=== PATIENT | male | born 1965 | race Caucasian/White ===

== ENCOUNTER 2016-11-24 15:25 | Inpatient (IN) | payer OTHER ==
[~2016-11-24] VITALS: Ht 182.9 cm; Wt 88.6 kg
--- NOTE | ~2016-11-24 | CATHLAB ---
[facility] [employer] [place] [address] INVASIVE PROCEDURE REPORT Name: PIERCE RUSSO Room #: 201-P ADM IN M.R.#: [id number] Admission: 11/24/16 Attend Phys: Garrison Cardenas Discharge: Date of : 63 Date of Service: 11/25/16 1116 Report #: [id number] THIS REPORT FOR: //name// CC: Paulino JAMES DATE OF SERVICE: 11/25/2016 TYPE OF REPORT: Cardiac catheterization. INDICATION: Rgb-ZH-tomcqzicv myocardial infarction. DESCRIPTION OF PROCEDURE: Full risks, benefits and alternatives of cardiac catheterization were explained to the patient. All questions were answered. Informed consent was obtained. The right groin area was prepped and draped in a sterile manner. Lidocaine was given subcutaneously. A 4-Ethiopian sheath was inserted into the right femoral artery via modified Seldinger technique. CORONARY ANATOMY: The left main artery is a large caliber vessel, with no flow-limiting lesions. The LAD is a ohqvuzoe-cy-nhjmr size caliber vessel, travelling down the anterior wall and wrapping around the apex. There is a severe, complicated bifurcating stenosis involving the proximal LAD and ostium of the first diagonal artery. The diagonal artery is a moderate-sized caliber vessel, travelling down the anterior lateral wall. This stenosis is approximately 80%-90% involving the proximal LAD and ostium of the first diagonal artery. The left circumflex artery is a ayxmclvw-ic-oeznk size caliber vessel, supplying several obtuse marginal arteries. The first obtuse marginal artery is a moderate-size caliber vessel with a severe stenosis at the ostium, at least 90%. The RCA supplies the PDA. The RCA has a ufqwspmt-nh-wubcis stenosis in the mid segment, 50%-70%. A left ventriculogram was performed revealing moderate LV dysfunction, EF around 35%-40%. There is hypokinesis of the anterior lateral and apical segments. The LVEDP is 20 mmHg. There is no gradient across the outflow tract. IMPRESSION: 1. Severe 3-vessel disease. 2. Moderate segmental left ventricular dysfunction. [facility] [address] [address] INVASIVE PROCEDURE REPORT Name: PIERCE RUSSO Room #: 201-P ADM IN M.R.#: [id number] Admission: 11/24/16 Attend Phys: Garrison Cardenas Discharge: Date of : 63 Date of Service: 11/25/16 1116 Report #: [id number] RECOMMENDATION: Recommend surgical consultation. <ELECTRONICALLY SIGNED> By: Gabe Kim MD 11/26/16 0737 1116 20 Gabe Kim MD /nt
--- NOTE | ~2016-11-24 | EKG ---
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: Cyndy MILLS : 1965 Requested By: Pierce Fong Order Number: [id number] MD: Bharat Arboleda Measurements Intervals [place] Rate: 89 P: 39 VA: 203 QRS: 21 QRSD: 129 T: 24 QT: 390 QTc: 475 Interpretive Statements Sinus rhythm Borderline prolonged VA interval Right bundle branch block Compared to ECG 11/26/2016 21:45:09 Right bundle-branch block now present Electronically Signed On 11-28-2016 9:21:25 CDT by Bharat Arboleda [email or web address] <ELECTRONICALLY SIGNED> By: Bharat Arboleda MD, [facility] 11/28/16920 1555 1555 Bharat Arboleda MD, [facility] /EPI
--- NOTE | ~2016-11-24 | HC ---
[facility] [place] [address] CONSULTATION Name: PIERCE RUSSO Room #: 201-P ADM IN M.R.#: [id number] Admission: 11/24/16 Attend Phys: Paulino Ruiz MD Discharge: Date of : 63 Report #: [id number] THIS REPORT FOR: //name// CC: Paulino GAUTAMDEVENDRA MELCHORY DATE OF SERVICE: 11/24/2016 INDICATION: Chest pain. HISTORY OF PRESENT ILLNESS: This is a 51-year-old gentleman with a past medical history significant for diabetes mellitus, hypertension, presenting with chest pains of 2 days onset. 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 He has some intermittent chest pain yesterday while at work. Today, the pain was more severe, about 5/10 in intensity. He felt some diaphoresis and nausea. The patient presented to the ER for an evaluation. He reports having one episode of vomiting, after taking aspirin. The pain was not alleviated with sitting upright or deep inspiration. PAST MEDICAL HISTORY: Diabetes mellitus, hypertension. ALLERGIES: LISINOPRIL. MEDICATIONS: Losartan 25 mg daily and Janumet 50/500 mg twice a day. SOCIAL HISTORY: Negative for tobacco use. FAMILY HISTORY: Positive for CAD. REVIEW OF SYSTEMS: A full 10-point review of systems performed. Only the pertinent positives and negatives as described in the HPI. PHYSICAL EXAMINATION: VITAL SIGNS: Blood pressure is 110/70, heart rate is 67 beats per minute. GENERAL APPEARANCE: This is a well-developed, well-nourished male in no acute respiratory distress. HEAD AND EYES: Normocephalic. Sclerae are anicteric. ENT: Oral mucosa moist. NECK: Supple. LUNGS: Clear to auscultation. CARDIAC: Regular rate and rhythm, S1, S2 positive. ABDOMEN: Soft. EXTREMITIES: No major joint deformities. No edema. ECG reveals sinus rhythm, diffuse ST elevation in V2 to V5, consistent with early repolarization. [facility] [address] [place] [address] CONSULTATION Name: PIERCE RUSSO Room #: 201-P ADM IN [facility].#: [id number] Admission: 11/24/16 Attend Phys: Paulino Ruiz MD Discharge: Date of : 63 Report #: [id number] LABORATORY VALUES: Sodium is 143, creatinine is 1.0, troponin is 0.99. White count is 13.8, hemoglobin 15.5. ASSESSMENT: 1. Non-ST elevation myocardial infarction. The patient was started on IV heparin, IV nitroglycerin. His symptoms have been relieved. Continue with serial troponin measurements. We discussed the pros and cons of noninvasive stress testing versus cardiac catheterization. 2. Hypertension, continue with losartan. 3. Diabetes mellitus, continue with medications. Check fingersticks. 4. Hypercholesterolemia, will need a lipid panel. Thank you for allowing me to participate in the care of your patient. <ELECTRONICALLY SIGNED> By: Gabe Kim MD 11/25/16 0741 1732 0106 Gabe Kim MD /susannah
--- NOTE | ~2016-11-24 | H ---
[facility] [place] [address] HISTORY AND PHYSICAL Name: PIERCE RUSSO Room #: 201-P ADM IN M.R.#: [id number] Admission: 11/24/16 Attend Phys: Paulino Ruiz MD Discharge: Date of : 63 Report #: [id number] THIS REPORT FOR: //name// CC: Paulino Ruiz MARÍA MELCHORY DATE OF SERVICE: 11/24/2016 This is admission to the hospitalist service. HISTORY OF PRESENT ILLNESS: The patient sees the primary care doctor, Dr. Dunn. He states he was working today and developed some nonradiating mid sternal chest pain. He did have some nausea, episode of vomiting and weakness with this. He had a couple of similar episodes yesterday. 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 He describes it as tightness. He did take aspirin, but vomited after taking it. He does have a family history of coronary artery disease with the dad in his 50s. He is also diabetic and has hypertension. He is not taking a statin. PAST MEDICAL HISTORY: Significant for: 1. Hypertension. 2. Diabetes. MEDICATIONS: Include: 1. Janumet 50/500 one b.i.d. 2. Losartan 25 mg a day. ALLERGIES: LISINOPRIL CAUSING A COUGH. SOCIAL HISTORY: Nonsmoker, drinks alcohol occasionally. No recreational drugs. 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 REVIEW OF SYSTEMS: CONSTITUTIONAL: No fever or chills. HEENT: No headaches or visual changes. CHEST: Positive for chest pains. No significant cough or sputum production. GASTROINTESTINAL: Positive for nausea and vomiting. No black stools or diarrhea. GENITOURINARY: No burning or frequency. EXTREMITIES: No new joint pain. SKIN: No new rashes or wounds. NEUROLOGIC: No new numbness, but positive for generalized weakness. PHYSICAL EXAMINATION: VITAL SIGNS: Blood pressure 110/69, pulse 74, respiratory rate 18, and O2 sat is 98% on 2 liters. [facility] [address] [place] [address] HISTORY AND PHYSICAL Name: PIERCE RUSSO Room #: 201-P [facility] IN M.R.#: [id number] Admission: 11/24/16 Attend Phys: Paulino Ruiz MD Discharge: Date of : 63 Report #: [id number] GENERAL: He is awake, alert and very pleasant male, who is in no acute distress. HEENT: His mucous membranes are moist. NECK: Supple, without adenopathy, thyromegaly or bruits. CHEST: Clear to auscultation, nontender to palpation. CARDIOVASCULAR: Regular rhythm without murmur. ABDOMEN: Soft, no masses. Bowel sounds are active. EXTREMITIES: Show no edema. Pulses are intact. SKIN: Grossly intact. No wounds or rashes. NEUROLOGIC: Alert and oriented x 3. Cranial nerves are grossly intact. Motor and sensory grossly intact. LABORATORY DATA: EKG shows sinus rhythm, rate of 67. There is some ST segment elevation in V2, 3, 4, 5 with early repolarization. No old EKGs to compare. Sodium 143, potassium 3.5, chloride 105, bicarbonate 28, BUN 17, creatinine 1.0, and glucose 147. Troponin 0.99. BNP 852. WBCs 13.8, hemoglobin 15.5, hematocrit 44.7, platelet count 286, 52 segs, and 27 lymphs. Chest x-ray shows no acute process. ASSESSMENT AND PLAN: 1. Non-ST Segment Elevation Myocardial Infarction. The patient has been seen by Cardiology, Dr. Alcantar, get catheterization by tomorrow. They are going to start him on nitroglycerin; however, he had a drop in his blood pressure in the ER. Since he is pain free right now, we will hold off on that. He did get aspirin again. We will admit to CCU tele. 2. Diabetes mellitus. We are going to hold his Janumet, so he can have the heart catheterization. To keep him metformin off. We will do sliding scale of insulin. By: 1837 23 Paul Burnette MD /nt
--- NOTE | ~2016-11-24 | EKG ---
[address] [place] [address] ELECTROCARDIOGRAM REPORT Name: PIERCE RUSSO Room #: 201-P ADM IN M.R.#: [id number] Admission: 11/24/16 Attend Phys: Paulino Ruiz MD Discharge: Date of : 63 Report #: [id number] THIS REPORT FOR: //name// 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
--- NOTE | ~2016-11-24 | EKG ---
[address] [employer] [place] [address] ELECTROCARDIOGRAM REPORT Name: PIERCE RUSSO Room #: 239-P ADM IN M.R.#: [id number] Admission: 11/24/16 Attend Phys: Garrison Cardenas MD Discharge: Date of : 63 Report #: [id number] THIS REPORT FOR: //name// [facility] Test Date: 2016-11-28 Test Time: 06:38:11 Pat Name: PIERCE RUSSO Department: Room: 239 P Gender: M Core Maker: dudley : 1965 Requested By: Pierce Fong Order Number: [id number] MD: Bharat Arboleda Measurements Intervals [place] Rate: 72 P: 6 AK: 227 QRS: -19 QRSD: 127 T: 19 QT: 413 QTc: 453 Interpretive Statements Sinus rhythm Prolonged AK interval Right bundle branch block Possible Anteroseptal infarct, age indeterminate Compared to ECG 11/26/2016 21:45:09 no significant change was found Electronically Signed On 11-28-2016 9:27:30 CDT by Bharat Arboleda [email or web address] <ELECTRONICALLY SIGNED> By: Bharat Arboleda MD, [facility] 11/28/16 0927 0638 0638 Bharat Arboleda MD, [facility] /EPI
--- NOTE | ~2016-11-24 | O ---
[facility] [place] [address] OPERATIVE REPORT Name: PIERCE RUSSO Room #: 205-P [facility] IN M.R.#: [id number] Admission: 11/24/16 Attend Phys: Garrison Cardenas MD Discharge: 12/02/16 Date of : 63 Report #: [id number] THIS REPORT FOR: //name// CC: Garrison GAUTAMDEVENDRA MELCHORY DATE OF SERVICE: 11/27/2016. PREOPERATIVE DIAGNOSIS: Coronary artery disease. POSTOPERATIVE DIAGNOSIS: Coronary artery disease. OPERATION: Coronary artery bypass x 4 including left internal mammary artery to left anterior descending artery, saphenous vein to diagonal and marginal 1 and saphenous vein to posterior descending artery and endoscopic harvest, left greater saphenous vein. SURGEON: Pierce Fong M.D. ANESTHESIA: General. INDICATIONS: The patient is a 51-year-old seen for Dr. Kim. The patient has important 3-vessel coronary artery disease and diabetes mellitus. Left ventricular function is reduced with apical akinesis. FINDINGS AND TECHNIQUE: After general anesthesia was established, saphenous vein was harvested using an endoscopic approach by Mr. Jones and prepared for use as a conduit. Exposure was obtained through median sternotomy. Left internal mammary artery was harvested from chest wall. Pericardial well was made. Cannulation sutures were placed. Heparin was given. Aorta was cannulated. Right atrium was cannulated. Cardioplegia needle was positioned in the aortic root. Retrograde cardioplegic catheter was placed in coronary sinus. Cardiopulmonary bypass was established. The aorta was cross clamped antegrade then retrograde cardioplegia were given. Ice was poured in the pericardial well. The heart was stopped. During electromechanical arrest, the distal anastomoses were performed and end-to-side anastomosis was made between vein and the posterior descending artery. Cold cardioplegia was given. A separate segment of vein was sewn in end-to-side fashion to first marginal artery. Cold cardioplegia was given. Same segment of vein was sewn in uope-fw-cfkt fashion to the diagonal artery. Cold cardioplegia was given. Left internal mammary artery was sewn in end-to-side fashion to left anterior descending artery. Patency of this vessel was checked with the temperature technique. Cold cardioplegia was given. Two proximal anastomoses were performed. When these were complete, warm retrograde cardioplegia was given followed by warm continuous blood to the coronary sinus. [facility] [address] [place] [address] OPERATIVE REPORT Name: PIERCE RUSSO Room #: 205-P [facility] IN M.R.#: [id number] Admission: 11/24/16 Attend Phys: Garrison Cardenas MD Discharge: 12/02/16 Date of : 63 Report #: [id number] When this infusion was complete, the crossclamp was removed, de-airing maneuvers were performed. The anastomoses were inspected and found to be satisfactory. As the patient warmed, nice cardiac activity resumed, chest tubes and pacing wires were placed, a marker was placed around the proximal anastomoses. When the patient was warmed, he was weaned from cardiopulmonary bypass. Venous cannula was removed. Protamine was given, the aortic cannula was removed. Flows were measured in the bypass grafts. Flow in the graft to the right side was 25 mL per minute. Flow in the graft to the left side was 53 mL per minute. A good Doppler signal was audible in the internal mammary artery. Total cross clamp time was 96 minutes, total pump time was 115 minutes. When hemostasis was satisfactory, chest was irrigated with antibiotic solution and closed in the usual fashion. The patient was taken to the Intensive Care Unit in good condition having tolerated the procedure well. All counts reported as correct. <ELECTRONICALLY SIGNED> By: iPerce Fong MD 12/03/16 1413 0828 0908 Pierce Fong MD /nt
--- NOTE | ~2016-11-24 | 2DMMODE ---
[facility] [address] [place] [address] 2 D/M-MODE ECHOCARDIOGRAM Name: PIERCE RUSSO Room #: 201-P ADM IN M.R.#: [id number] Admission: 11/24/16 Attend Phys: Garrison Cardenas Discharge: Date of : 63 Date of Service: 11/26/16 1248 Report #: [id number] THIS REPORT FOR: //name// APPROVED REPORT Study performed: 11/26/2016 11:35:15 EXAM: Comprehensive 2D, Doppler, and color-flow Echocardiogram Patient Location: Bedside Room #: 201 Blood Pressure: 133/64 mmHg HR: 62 bpm Other Information Study Quality: Good Indications Diabetes CAD Chest Pain Hypertension/HDD 2D Dimensions RVDd: 37.09 mm LVEF(%): 49.75 (>50%) IVSd: 11.21 (7-11mm) LVOT Diam: 21.39 (18-24mm) LVDd: 47.38 mm PWd: 9.28 (7-11mm) Ascending Aorta: 30.01 mm LVDs: 35.44 (25-40mm) IVC: 19.00 mm Aortic Root: 32.72 mm Gutiérrez's LVEF: 49.75 % Volumes Left Atrial Volume (Systole) Single Plane 4CH: 55.43 mL Single Plane 2CH: 47.87 mL LA ESV Index: 28.00 mL/m2 Aortic Valve AoV Peak Breezy.: 1.03 m/s AO Peak Gr.: 4.20 mmHg LV Max P.07 mmHg LV Max: 0.88 m/s Mitral Valve E/A Ratio: 1.4 [facility] [address] [place] [place] [address] 2 D/M-MODE ECHOCARDIOGRAM Name: PIERCE RUSSO Room #: 201-P ADM IN M.R.#: [id number] Admission: 11/24/16 Attend Phys: Garrison Cardenas Discharge: Date of : 63 Date of Service: 11/26/16 1248 Report #: [id number] MV Decel. Time: 170.97 ms MV E Max Breezy.: 0.74 m/s MV A Breezy.: 0.54 m/s MV PHT: 49.58 ms Pulmonary Vein P Vein S: 33.7 m/s P Vein D: 28.6 m/s P Vein A Dur.: 26.5 m/s PVa Duration: 111 Tricuspid Valve RAP Estimate: 5.00 mmHg Left Ventricle The left ventricle is normal size. Hypokinesis of the septum, anterior wall and apex. There is normal left ventricular wall thickness. Left ventricular systolic function is moderately decreased. LVEF is 30-35%. Grade II diastolic dysfunction Right Ventricle The right ventricle is normal size. The right ventricular systolic function is normal. Atria The left atrium size is normal. The right atrium size is normal. Aortic Valve The aortic valve is normal in structure. No aortic regurgitation is present. There is no aortic valvular stenosis. Mitral Valve The mitral valve is normal in structure. No mitral regurgitation. No evidence of mitral valve stenosis. Tricuspid Valve The tricuspid valve is normal in structure. There is no tricuspid valve regurgitation noted. Pulmonic Valve The pulmonary valve is normal in structure. There is no pulmonic valvular regurgitation. Great Vessels The aortic root is normal in size. IVC is normal in size and collapses >50% with inspiration. [facility] [place] [address] 2 D/M-MODE ECHOCARDIOGRAM Name: PIERCE RUSSO Room #: 201-P ADM IN M.R.#: [id number] Admission: 11/24/16 Attend Phys: Garrison Cardenas Discharge: Date of : 63 Date of Service: 11/26/16 1248 Report #: [id number] Pericardium There is no pericardial effusion. <Conclusion> Left ventricular systolic function is moderately decreased. Hypokinesis of the septum, anterior wall and apex. LVEF 30-35%. The aortic valve is normal in structure. No aortic regurgitation or stenosis. The mitral valve is normal in structure. No mitral regurgitation. Pulmonary artery pressure could not be reliably ascertaiened. There is no pericardial effusion. <ELECTRONICALLY SIGNED> By: Bharat Arboleda MD, [facility] 11/26/16 1248 1248 1248 Bharat Arboleda MD, [facility] /INF
--- NOTE | ~2016-11-24 | EKG ---
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 : 1965 Requested By: Gabe Kim Order Number: [id number] MD: Bharat Arboleda Measurements Intervals [place] Rate: 71 P: 16 [place]: 194 QRS: 20 QRSD: 99 T: 108 QT: 408 QTc: 444 Interpretive Statements Sinus rhythm Anterior infarct, age indeterminate Lateral leads are also involved Baseline wander in lead(s) V4 Compared to ECG 11/25/2016 09:01:24 Anterior T wave abnormality is now present Electronically Signed On 11-27-2016 8:43:45 CDT by Bharat Arboleda [email or web address] <ELECTRONICALLY SIGNED> By: Bharat Arboleda MD, [facility] 11/27/16 0843 2145 2145 Bharat Arboleda MD, [facility] /EPI
--- NOTE | ~2016-11-24 | EKG ---
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
--- NOTE | ~2016-11-24 | HC ---
[facility] [place] [address] CONSULTATION Name: PIERCE RUSSO Room #: 205-P ADM IN M.R.#: [id number] Admission: 11/24/16 Attend Phys: Garrison Cardenas MD Discharge: Date of : 63 Report #: [id number] THIS REPORT FOR: //name// CC: Garrison Cardenas MARÍA JAMES DATE OF SERVICE: 11/25/2016 REASON FOR CONSULT: We were asked to see the patient by Dr. Kim. The patient is a 51-year-old admitted on Saturday the with chest pain. The patient first noted some angina on Saturday, but this became particularly severe on Saturday when there was mid sternal boring pain that was slightly left of center without specific radiation. The patient had some diaphoresis and nausea. The patient took aspirin for this at home and then had an episode of vomiting. The patient came to the emergency department and had relief after thrombolytic drugs were given. We note that cardiac catheterization was done yesterday that showed important 3-vessel disease including 90-95% LAD lesion at a large diagonal branch point and a 90% lesion of the first marginal. There was also a very discrete 50-70% right coronary artery stenosis. Left ventricular function somewhat reduced with apical akinesis, evidence of myocardial stunning. PAST MEDICAL HISTORY: Significant for diabetes mellitus and hypertension. MEDICATIONS AT HOME: Include losartan and Janumet. ALLERGIES: The patient claims to be allergic to LISINOPRIL, but this causes cough. FAMILY HISTORY: Positive for coronary artery disease. Father had bypass surgery at approximately the same age. REVIEW OF SYSTEMS: CONSTITUTIONAL: No history of fever or chills. No particular weight change recently. EYES: No vision problems. HEENT: No headache. No ear pain. No nasal drainage. RESPIRATORY: No shortness of breath. No sputum production. CARDIAC: As mentioned, angina of new onset. No previous history of heart failure type symptoms of shortness of breath with position changes or peripheral edema. No palpitations. GASTROINTESTINAL: Vomiting after aspirin prior to admission, but no history of nausea, vomiting, diarrhea, or blood in stool. GENITOURINARY: No urgency, frequency, or hematuria. NEUROLOGIC: No motor or sensory dysfunction. [address] [address] CONSULTATION Name: PIERCE RUSSO Room #: 205-P [facility] IN M.R.#: [id number] Admission: 11/24/16 Attend Phys: Garrison Cardenas MD Discharge: Date of : 63 Report #: [id number] MUSCULOSKELETAL: No bone or joint problems. SKIN: No rash or infection. PSYCHIATRIC: Has had some recent stress and anxiety recently. No psychosis. HEMATOLOGIC: No anemia. No lymphatic swelling. COLLAGEN VASCULAR: No rheumatoid arthritis. No lupoid rash. PHYSICAL EXAMINATION: VITAL SIGNS: Temperature 37.2, pulse rate 73, blood pressure 106/70, respiratory rate 16, and bedside oximetry 95% on room air. GENERAL: The patient seems comfortable without distress. He has a slightly endomorphic habitus. HEENT: No scleral icterus, no arcus. No xanthelasma. The patient does have bilateral lobes. NECK: No lymphadenopathy. No bruit. CHEST: Clear to auscultation. HEART: Rhythm regular. No murmur. ABDOMEN: Soft, no mass, no tenderness. EXTREMITIES: No clubbing, cyanosis, or edema; has somewhat of peripheral wasting in intraosseous muscles of feet and hands. No obvious venous abnormalities in lower extremity. 2+ posterior tibial pulses bilaterally. NEUROLOGIC: No motor or sensory dysfunction after cardiac cath. PSYCHIATRIC: Shows insight into problem. The patient is a pleasant fellow, somewhat volatile emotionally due to stress of illness and recent events at home. I reviewed the cardiac catheterization with the patient. Options and alternatives for treatment were discussed. I have recommended coronary artery bypass surgery for two reason. 1. The particular anatomy and location of the lesions. 2. Presence of three-vessel disease in a fellow with diabetes mellitus. Risks and details of surgery were discussed. These include, but are not limited to, bleeding, infection, anesthesia risks, heart and lung problems, stroke, and . Options and alternatives were discussed. The patient understands all of this and he wishes to proceed. We will try to schedule surgery for the first available date and the patient will stay in the hospital until that time. The patient agrees with this approach as thus family. Thank you for the consult. <ELECTRONICALLY SIGNED> By: Pierce Fong MD 11/30/16 0830 1123 1529 Pierce Fong MD /nt
--- NOTE | ~2016-11-24 | EKG ---
[address] [place] [address] ELECTROCARDIOGRAM REPORT Name: PIERCE RUSSO Room #: 205- DIS IN M.R.#: [id number] Admission: 11/24/16 Attend Phys: Garrison Cardenas MD Discharge: 12/02/16 Date of : 63 Report #: [id number] THIS REPORT FOR: //name// [facility] Test Date: 2016-12-01 Test Time: 08:00:28 Pat Name: PIERCE RUSSO Department: Room: 205 Gender: M Fox Raiser: carito : 1965 Requested By: Pierce Fong Order Number: [id number] MD: Bharat Arboleda Measurements Intervals [place] Rate: 79 P: 27 NV: 209 QRS: 63 QRSD: 131 T: 17 QT: 429 QTc: 492 Interpretive Statements Sinus rhythm Borderline prolonged NV interval Right bundle branch block Possible anteroseptal infarct, age indeterminate Compared to ECG 11/28/2016 06:38:11 no significant change was found Electronically Signed On 12-02-2016 15:00:32 CDT by Bharat Arboleda [email or web address] <ELECTRONICALLY SIGNED> By: Bharat Arboleda MD, FACC 12/02/16 1500 0800 0800 Bharat Arboleda MD, [facility] /EPI
[2016-11-24 15:25] VITALS: BP 110/69
[2016-11-24] MEDS ORDERED: COZAAR 25 MG TA25 M1 PO (15:32)
[2016-11-24] MEDS ORDERED: JANUMET 50-5001 EACH PO (15:32)
[2016-11-24 15:43] LABS: HEMATOCRIT 44.7 % (42.0-52.0); HEMOGLOBIN 15.5 gm/dL (14.0-18.0); MCH 29.4 pg (26.0-34.0); MCHC 34.7 g/dL (28.0-37.0); MCV 84.7 fL (80.0-100.0); PLATELET COUNT 286 thou/uL (150-400); RBC 5.28 mil/uL (4.50-6.00); RDW 13.6 % (10.5-14.5); WBC 13.8 thou/uL (4.0-11.0)
[2016-11-24 15:44] LABS: MANUAL DIFF YES
[2016-11-24 15:51] LABS: CALCIUM 8.9 mg/dL (8.5-10.1); POTASSIUM 3.5 mmol/L (3.5-5.1)
[2016-11-24 16:04] LABS: TROPONIN-I 0.99 ng/mL (<0.04-0.07)
[2016-11-24 16:06] LABS: ABSOLUTE NEUTROPHILS 8.6 thou/uL (1.4-8.2); TOTAL CELL COUNT 100
[2016-11-24 17:00] VITALS: BP 119/88
[2016-11-24 17:30] VITALS: BP 100/54
[2016-11-24 19:18] VITALS: BP 121/78
[2016-11-24 23:45] VITALS: BP 122/78
[2016-11-25] VITALS (10 sets, daily range): BP systolic 94–116; BP diastolic 54–76
[2016-11-25 06:55] LABS: TROPONIN-I 55.91 ng/mL (<0.04-0.07)
[2016-11-25 10:30] LABS: CHOLESTEROL 182 mg/dL (<200); HDL CHOLESTEROL 39 mg/dL (>40); LDL CHOLESTEROL 110 mg/dL (<100); TC:HDL 4.7 Ratio (Not establshd); TRIGLYCERIDE 169 mg/dL (<150); VLDL 34 mg/dL (<40)
[2016-11-25 14:16] LABS: PROTIME 10.6 Seconds (9.3-11.4)
[2016-11-25 19:33] LABS: URINE BILIRUBIN NEGATIVE (Negative); URINE BLOOD NEGATIVE (Negative); URINE COLOR YELLOW; URINE GLUCOSE-RANDOM* 3+ (Negative); URINE KETONES NEGATIVE (Negative); URINE NITRITE NEGATIVE (Negative); URINE PROTEIN (DIPSTICK) NEGATIVE (Negative); URINE UROBILINOGEN 0.2 E.U./dl (0.2-1.0)
[2016-11-26] VITALS (12 sets, daily range): BP systolic 96–133; BP diastolic 52–75
[2016-11-26 01:05] LABS: GLYCOHEMOGLOBIN (HGB A1C) 7.2 % (4.8-5.6)
[2016-11-26 07:20] LABS: HEMATOCRIT 44.8 % (42.0-52.0); HEMOGLOBIN 15.3 gm/dL (14.0-18.0); MCH 29.3 pg (26.0-34.0); MCHC 34.1 g/dL (28.0-37.0); RBC 5.21 mil/uL (4.50-6.00); RDW 13.6 % (10.5-14.5); WBC 12.1 thou/uL (4.0-11.0)
[2016-11-26 07:29] LABS: MANUAL DIFF YES; PLATELET COUNT 205 thou/uL (150-400)
[2016-11-26 07:39] LABS: CALCIUM 8.6 mg/dL (8.5-10.1); CREATININE 0.8 mg/dL (0.7-1.3); POTASSIUM 3.6 mmol/L (3.5-5.1); TOTAL BILIRUBIN 0.8 mg/dL (<0.1-1.0); TOTAL PROTEIN 6.9 g/dL (6.4-8.2)
[2016-11-26 08:20] LABS: ABSOLUTE NEUTROPHILS 7.7 thou/uL (1.4-8.2); ANISOCYTOSIS SLIGHT; TOTAL CELL COUNT 100
[2016-11-26 16:08] LABS: MICROALBUMIN-RND URINE < 12.0 ug/mL (Not Estab.)
[2016-11-26 17:10] LABS: CREATININE (ALB/CR) 62.3 mg/dL (Not Estab.); MICROALB:CREAT < 19.3 (0.0-30.0)
[2016-11-27 03:17] VITALS: BP 93/63
[2016-11-27 08:06] VITALS: BP 105/50
[2016-11-27 13:37] LABS: POC BE -6 mmol/L (-2.0 to +3.0); POC CA IONIZED 4.9 mg/dL (4.5-5.3); POC FiO2 10 %; POC GLUCOSE 149 mg/dL (70-99); POC HCO3 20.9 mmol/L (22.0-26.0); POC HEMOGLOBIN 11.9 g/dL (14.0-18.0); POC POTASSIUM 3.7 mmol/L (3.5-5.1); POC SODIUM 141 mmol/L (136-145); POC pCO2 43.6 mmHg (35.0-45.0); POC pH 7.289 (7.360-7.450)
[2016-11-27 13:37] LABS: POC BE -2 mmol/L (-2.0 to +3.0); POC CA IONIZED 4.7 mg/dL (4.5-5.3); POC FiO2 100 %; POC GLUCOSE 205 mg/dL (70-99); POC HCO3 23.4 mmol/L (22.0-26.0); POC HEMOGLOBIN 14.6 g/dL (14.0-18.0); POC POTASSIUM 4.2 mmol/L (3.5-5.1); POC SODIUM 137 mmol/L (136-145); POC pCO2 38.7 mmHg (35.0-45.0)
[2016-11-27 13:37] LABS: POC BE -4 mmol/L (-2.0 to +3.0); POC CA IONIZED 4.3 mg/dL (4.5-5.3); POC FiO2 100 %; POC GLUCOSE 174 mg/dL (70-99); POC HCO3 22.7 mmol/L (22.0-26.0); POC HEMOGLOBIN 11.9 g/dL (14.0-18.0); POC POTASSIUM 4.1 mmol/L (3.5-5.1); POC SODIUM 137 mmol/L (136-145); POC pCO2 46.2 mmHg (35.0-45.0)
[2016-11-27 13:37] LABS: POC BE 0 mmol/L (-2.0 to +3.0); POC CA IONIZED 4.3 mg/dL (4.5-5.3); POC FiO2 100 %; POC GLUCOSE 191 mg/dL (70-99); POC HEMOGLOBIN 11.6 g/dL (14.0-18.0); POC POTASSIUM 4.3 mmol/L (3.5-5.1); POC SODIUM 138 mmol/L (136-145); POC pCO2 47.1 mmHg (35.0-45.0)
[2016-11-27 13:37] LABS: POC BE 0 mmol/L (-2.0 to +3.0); POC CA IONIZED 4.2 mg/dL (4.5-5.3); POC FiO2 100 %; POC GLUCOSE 183 mg/dL (70-99); POC HCO3 25.6 mmol/L (22.0-26.0); POC HEMOGLOBIN 10.5 g/dL (14.0-18.0); POC POTASSIUM 4.6 mmol/L (3.5-5.1); POC SODIUM 137 mmol/L (136-145); POC pCO2 46.7 mmHg (35.0-45.0); POC pH 7.346 (7.360-7.450)
[2016-11-27 13:37] LABS: POC BE 0 mmol/L (-2.0 to +3.0); POC CA IONIZED 4.2 mg/dL (4.5-5.3); POC FiO2 100 %; POC GLUCOSE 177 mg/dL (70-99); POC HCO3 25.9 mmol/L (22.0-26.0); POC HEMOGLOBIN 11.6 g/dL (14.0-18.0); POC POTASSIUM 4.1 mmol/L (3.5-5.1); POC SODIUM 136 mmol/L (136-145); POC pCO2 50.2 mmHg (35.0-45.0); POC pH 7.321 (7.360-7.450)
[2016-11-27 13:37] LABS: POC BE -4 mmol/L (-2.0 to +3.0); POC CA IONIZED 5.2 mg/dL (4.5-5.3); POC FiO2 100 %; POC GLUCOSE 175 mg/dL (70-99); POC HCO3 22.1 mmol/L (22.0-26.0); POC HEMOGLOBIN 11.2 g/dL (14.0-18.0); POC SODIUM 138 mmol/L (136-145); POC pCO2 40.9 mmHg (35.0-45.0); POC pH 7.341 (7.360-7.450)
[2016-11-27 13:37] LABS: POC BE 0 mmol/L (-2.0 to +3.0); POC CA IONIZED 4.3 mg/dL (4.5-5.3); POC FiO2 100 %; POC GLUCOSE 186 mg/dL (70-99); POC HCO3 25.4 mmol/L (22.0-26.0); POC HEMOGLOBIN 11.6 g/dL (14.0-18.0); POC POTASSIUM 4.3 mmol/L (3.5-5.1); POC SODIUM 137 mmol/L (136-145); POC pCO2 46.5 mmHg (35.0-45.0); POC pH 7.345 (7.360-7.450)
[2016-11-27 13:37] LABS: POC BE -4 mmol/L (-2.0 to +3.0); POC CA IONIZED 4.4 mg/dL (4.5-5.3); POC FiO2 100 %; POC GLUCOSE 196 mg/dL (70-99); POC HCO3 21.4 mmol/L (22.0-26.0); POC HEMOGLOBIN 13.6 g/dL (14.0-18.0); POC POTASSIUM 3.7 mmol/L (3.5-5.1); POC SODIUM 136 mmol/L (136-145); POC pCO2 36.4 mmHg (35.0-45.0); POC pH 7.378 (7.360-7.450)
[2016-11-27 13:51] VITALS: BP 110/72
[2016-11-27 13:59] LABS: ABG SAMPLE TYPE ARTERIAL; BE(vivo) -6.3 mmol/L (-2 to +3); HCO3 21.1 mmol/L (22.0-26.0); LACTATE 1.98 mmol/L (0.5-2.0); O2(CT) 18.6 mL/dL (15.0-23.0); O2Hb 95.5 % (92.0-98.0); PCO2 48.8 mmHg (35.0-45.0); PO2 97.1 mmHg (80.0-100.0); sO2 96.3 % (92.0-98.0); tCO2 22.6 mmol/L (24.0-30.0)
[2016-11-27 14:00] VITALS: BP 105/68
[2016-11-27 14:00] LABS: STICK SITE LINE; TIDAL VOLUME 600 ml; pH 7.253 (7.360-7.450)
[2016-11-27 14:08] LABS: HEMATOCRIT 39.3 % (42.0-52.0); MCH 29.2 pg (26.0-34.0); MCHC 33.6 g/dL (28.0-37.0); MCV 86.7 fL (80.0-100.0); RBC 4.53 mil/uL (4.50-6.00); RDW 13.3 % (10.5-14.5); WBC 25.7 thou/uL (4.0-11.0)
[2016-11-27 14:13] LABS: HEMOGLOBIN 13.2 gm/dL (14.0-18.0)
[2016-11-27 14:15] VITALS: BP 137/88
[2016-11-27 14:17] LABS: CALCIUM 7.3 mg/dL (8.5-10.1); CREATININE 0.8 mg/dL (0.7-1.3)
[2016-11-27 14:31] VITALS: BP 122/74
[2016-11-27 14:58] LABS: ABG SAMPLE TYPE ARTERIAL; BE(vivo) -5.3 mmol/L (-2 to +3); HCO3 20.1 mmol/L (22.0-26.0); LACTATE 3.01 mmol/L (0.5-2.0); O2Hb 92.5 % (92.0-98.0); PCO2 38.9 mmHg (35.0-45.0); PO2 70.7 mmHg (80.0-100.0); STICK SITE LINE; pH 7.331 (7.360-7.450); sO2 93.2 % (92.0-98.0); tCO2 21.3 mmol/L (24.0-30.0)
[2016-11-27 14:59] LABS: TIDAL VOLUME 650 ml
[2016-11-27 16:01] LABS: ABG SAMPLE TYPE ARTERIAL; BE(vivo) -4.4 mmol/L (-2 to +3); HCO3 19.8 mmol/L (22.0-26.0); LACTATE 2.83 mmol/L (0.5-2.0); O2(CT) 18.2 mL/dL (15.0-23.0); PCO2 33.8 mmHg (35.0-45.0); PO2 70.1 mmHg (80.0-100.0); pH 7.385 (7.360-7.450); sO2 94.1 % (92.0-98.0); tCO2 20.8 mmol/L (24.0-30.0)
[2016-11-27 16:39] LABS: ABG SAMPLE TYPE ARTERIAL; BE(vivo) -4.2 mmol/L (-2 to +3); HCO3 19.7 mmol/L (22.0-26.0); LACTATE 2.96 mmol/L (0.5-2.0); O2(CT) 18.2 mL/dL (15.0-23.0); O2Hb 93.7 % (92.0-98.0); PCO2 32.8 mmHg (35.0-45.0); PO2 73.2 mmHg (80.0-100.0); pH 7.397 (7.360-7.450); sO2 94.9 % (92.0-98.0); tCO2 20.7 mmol/L (24.0-30.0)
[2016-11-27 16:40] LABS: Pressure Support 6 cm H20; STICK SITE LINE
[2016-11-27 17:52] LABS: ABG SAMPLE TYPE ARTERIAL; BE(vivo) -4.2 mmol/L (-2 to +3); HCO3 19.6 mmol/L (22.0-26.0); LACTATE 2.19 mmol/L (0.5-2.0); O2(CT) 18.4 mL/dL (15.0-23.0); O2Hb 94.8 % (92.0-98.0); PCO2 32.3 mmHg (35.0-45.0); PO2 78.2 mmHg (80.0-100.0); pH 7.401 (7.360-7.450); sO2 95.7 % (92.0-98.0); tCO2 20.6 mmol/L (24.0-30.0)
[2016-11-27 17:53] LABS: Face Shield 50 %; STICK SITE LINE
[2016-11-27 18:10] LABS: HEMATOCRIT 39.7 % (42.0-52.0); HEMOGLOBIN 13.4 gm/dL (14.0-18.0); MCH 28.8 pg (26.0-34.0); MCHC 33.6 g/dL (28.0-37.0); MCV 85.8 fL (80.0-100.0); RBC 4.63 mil/uL (4.50-6.00); RDW 13.7 % (10.5-14.5)
[2016-11-27 18:11] LABS: CREATININE 0.9 mg/dL (0.7-1.3); POTASSIUM 4.2 mmol/L (3.5-5.1)
[2016-11-28 05:37] LABS: HEMATOCRIT 36.1 % (42.0-52.0); HEMOGLOBIN 12.2 gm/dL (14.0-18.0); MCH 29.2 pg (26.0-34.0); MCHC 33.9 g/dL (28.0-37.0); MCV 86.4 fL (80.0-100.0); PLATELET COUNT 194 thou/uL (150-400); RBC 4.18 mil/uL (4.50-6.00); RDW 13.9 % (10.5-14.5); WBC 15.2 thou/uL (4.0-11.0)
[2016-11-28 05:51] LABS: CALCIUM 7.8 mg/dL (8.5-10.1); CREATININE 0.8 mg/dL (0.7-1.3); POTASSIUM 3.8 mmol/L (3.5-5.1)
[2016-11-28 05:55] LABS: MANUAL DIFF YES
[2016-11-28 07:35] LABS: ABSOLUTE NEUTROPHILS 10.8 thou/uL (1.4-8.2); METAMYELOCYTES 1 %; TOTAL CELL COUNT 100
[2016-11-28 07:36] LABS: LARGE PLATELETS OCCASIONAL
[2016-11-28 19:43] VITALS: BP 127/80
[2016-11-28 23:41] VITALS: BP 107/72
[2016-11-29 03:23] VITALS: BP 117/79
[2016-11-29 04:06] LABS: HEMATOCRIT 33.8 % (42.0-52.0); HEMOGLOBIN 11.5 gm/dL (14.0-18.0); MCH 29.4 pg (26.0-34.0); MCHC 33.9 g/dL (28.0-37.0); MCV 86.9 fL (80.0-100.0); PLATELET COUNT 179 thou/uL (150-400); RBC 3.89 mil/uL (4.50-6.00); RDW 13.7 % (10.5-14.5); WBC 14.9 thou/uL (4.0-11.0)
[2016-11-29 04:13] LABS: MANUAL DIFF YES
[2016-11-29 04:15] LABS: CALCIUM 7.8 mg/dL (8.5-10.1); CREATININE 0.9 mg/dL (0.7-1.3); POTASSIUM 4.5 mmol/L (3.5-5.1)
[2016-11-29 06:05] LABS: ABSOLUTE NEUTROPHILS 11.9 thou/uL (1.4-8.2); TOTAL CELL COUNT 100
[2016-11-29 07:59] VITALS: BP 122/81
[2016-11-29 11:15] VITALS: BP 108/71
[2016-11-29 16:00] VITALS: BP 124/78
[2016-11-29 19:50] VITALS: BP 123/75
[2016-11-30 03:42] LABS: HEMATOCRIT 31.9 % (42.0-52.0); HEMOGLOBIN 11.1 gm/dL (14.0-18.0); MCH 29.8 pg (26.0-34.0); MCHC 34.6 g/dL (28.0-37.0); MCV 86.1 fL (80.0-100.0); PLATELET COUNT 221 thou/uL (150-400); RBC 3.71 mil/uL (4.50-6.00); RDW 13.6 % (10.5-14.5); WBC 14.3 thou/uL (4.0-11.0)
[2016-11-30 03:47] LABS: CALCIUM 8.4 mg/dL (8.5-10.1); CREATININE 0.8 mg/dL (0.7-1.3); MANUAL DIFF YES
[2016-11-30 03:50] VITALS: BP 95/58
[2016-11-30 05:48] LABS: ABSOLUTE NEUTROPHILS 10.9 thou/uL (1.4-8.2); TOTAL CELL COUNT 100
[2016-11-30 07:25] VITALS: BP 117/65
[2016-11-30 17:20] VITALS: BP 118/76
[2016-11-30 20:05] VITALS: BP 117/53
[2016-12-01 03:19] LABS: HEMATOCRIT 30.1 % (42.0-52.0); HEMOGLOBIN 10.3 gm/dL (14.0-18.0); MCH 29.6 pg (26.0-34.0); MCHC 34.1 g/dL (28.0-37.0); MCV 86.8 fL (80.0-100.0); RBC 3.46 mil/uL (4.50-6.00); RDW 13.6 % (10.5-14.5); WBC 12.1 thou/uL (4.0-11.0)
[2016-12-01 03:32] LABS: CALCIUM 8.1 mg/dL (8.5-10.1)
[2016-12-01 07:30] VITALS: BP 115/72
[2016-12-01 11:15] VITALS: BP 118/71
[2016-12-01 16:30] VITALS: BP 109/64
[2016-12-01 20:29] VITALS: BP 122/60
[2016-12-02 03:27] VITALS: BP 102/63
[2016-12-02 12:27] VITALS: BP 102/63
[2016-12-02] MEDS ORDERED: ATORVASTATIN CA20 MG PO (12:35)
[2016-12-02] MEDS ORDERED: PACERONE 200 M200 M1 PO (12:35)
[2016-12-02] MEDS ORDERED: ASPIR 8181 MG PO (12:35)
[2016-12-02] MEDS ORDERED: FERREX 150 PLU1 EAC1 PO (12:35)
[2016-12-02] MEDS ORDERED: LOPRESSOR25 PO (12:35)
[2016-12-02] MEDS ORDERED: HYDROCODON-ACE1 EAC7 PO (12:36)
[2016-12-02] MEDS ORDERED: COLACE 100 MG100 MG PO (12:36)
== END 2016-12-02 14:19 | disposition home or self-care (01) | DRG 234 ==
LOC: ER 15:25 → EROBS 16:27 → 2N 16:27 → ICU 11-27 13:59 → 2N 11-28 17:14
PROVIDERS: Internal Medicine Cardiovascular Disease; Internal Medicine Endocrinology, Diabetes & Metabolism; Nurse Practitioner; Surgery Vascular Surgery
DX: I21.4 Non-ST elevation (NSTEMI) myocardial infarction (principal); I25.10 Atherosclerotic heart disease of native coronary artery without angina pectoris; E11.9 Type 2 diabetes mellitus without complications; I25.5 Ischemic cardiomyopathy; F41.9 Anxiety disorder, unspecified; E78.5 Hyperlipidemia, unspecified; E78.00 Pure hypercholesterolemia, unspecified; I10 Essential (primary) hypertension; Z88.8 Allergy status to other drugs, medicaments and biological substances; Z79.82 Long term (current) use of aspirin; Z79.899 Other long term (current) drug therapy; Z82.49 Family history of ischemic heart disease and other diseases of the circulatory system
CPT/HCPCS: 10078; 10081; 47000; 47001; 47002; 47297; 48888; 50249; 50409; 50456; 50498; 50668; 51301; 52131; 53327; 53358; 54118; 56524; 56525; 56526; 56527; 56528; 56531; 56534; 56660; 56898; 57093; 62110; 62950; 64029; 65002; 65003; 65020; 65043; 65090; 65120; 83006

== ENCOUNTER → 2017-01-14 | Outpatient (CLI) | payer OTHER ==
[~2017-01-14] MED LIST: ASPIR 8181 MG PO; ATORVASTATIN CA20 MG PO; COLACE 100 MG100 MG PO; COZAAR 25 MG TA25 M1 PO; FERREX 150 PLU1 EAC1 PO; HYDROCODON-ACE1 EAC7 PO; JANUMET 50-5001 EACH PO; LOPRESSOR25 PO; PACERONE 200 M200 M1 PO
--- NOTE | ~2017-01-14 | 2DMMODE ---
[facility] [employer] [place] [address] 2 D/M-MODE ECHOCARDIOGRAM Name: PIERCE RUSSO Room #: REG Gertrudis#: [id number] Admission: 01/14/17 Attend Phys: Gabe Kim MD Discharge: Date of : 63 Date of Service: 01/14/17 1326 Report #: [id number] THIS REPORT FOR: //name// APPROVED REPORT Study performed: 01/14/2017 12:39:04 EXAM: Comprehensive 2D, Doppler, and color-flow Echocardiogram Patient Location: Out-Patient Room #: Echo lab Other Information Study Quality: Good Indications CAD 2D Dimensions RVDd: 36.58 mm LVEF(%): 56.55 (>50%) IVSd: 11.28 (7-11mm) LVOT Diam: 21.99 (18-24mm) LVDd: 43.74 mm PWd: 11.15 (7-11mm) Ascending Ao: 35.23 (22-36mm) LVDs: 30.88 (25-40mm) Aortic Root: 34.09 mm Gutiérrez's LVEF: 56.55 % Volumes Left Atrial Volume (Systole) Single Plane 4CH: 36.86 mL Single Plane 2CH: 54.03 mL LA ESV Index: 28.00 mL/m2 Aortic Valve AoV Peak Breezy.: 0.91 m/s AO Peak Gr.: 3.32 mmHg LVOT Max P.02 mmHg LVOT Max V: 0.87 m/s FRANSISCO Vmax: 3.62 cm2 Mitral Valve E/A Ratio: 1.3 MV Decel. Time: 211.85 ms MV E Max Breezy.: 0.64 m/s MV A Breezy.: 0.51 m/s MV PHT: 61.44 ms IVRT: 138.41 ms [facility] [place] [place] [address] 2 D/M-MODE ECHOCARDIOGRAM Name: PIERCE RUSSO [id number] Admission: 01/14/17 Attend Phys: Gabe Kim MD Discharge: Date of : 63 Date of Service: 01/14/17 1326 Report #: [id number] Pulmonary Valve PV Peak Breezy.: 1.05 m/s PV Peak Gr.: 4.41 mmHg Pulmonary Vein P Vein S: 0.50 m/s P Vein A: 0.24 m/s P Vein D: 0.42 m/s P Vein A Dur.: 92.3 msec P Vein S/D Ratio: 1.19 Tricuspid Valve RAP Estimate: 5.00 mmHg Left Ventricle The left ventricle is normal size. There is mild hypokinesis in the apical wall. There is mild hypokinesis in the apical septal wall. There is mild hypokinesis in the apical anterior wall. There is normal left ventricular wall thickness. Left ventricular systolic function is mildly decreased. LVEF is 45%. The left ventricular diastolic function is normal. Right Ventricle The right ventricle is normal size. The right ventricular systolic function is normal. Atria The left atrium size is normal. The right atrium size is normal. Aortic Valve The aortic valve is normal in structure. No aortic regurgitation is present. There is no aortic valvular stenosis. Mitral Valve The mitral valve is normal in structure. Trace to mild mitral regurgitation. No evidence of mitral valve stenosis. Tricuspid Valve The tricuspid valve is normal in structure. There is no tricuspid valve regurgitation noted. Pulmonic Valve The pulmonary valve is normal in structure. Trace pulmonic regurgitation. Great Vessels The aortic root is normal in size. IVC is normal in size and [facility] [address] [place] [address] 2 D/M-MODE ECHOCARDIOGRAM Name: PIERCE RUSSO Room #: REG CL Gertrudis#: [id number] Admission: 01/14/17 Attend Phys: Gabe Kim MD Discharge: Date of : 63 Date of Service: 01/14/17 1326 Report #: [id number] collapses >50% with inspiration. Pericardium There is no pericardial effusion. <Conclusion> The left ventricle is normal size. Left ventricular systolic function is mildly decreased. LVEF is 45%. The right ventricle is normal size. The left atrium size is normal. The aortic valve is normal in structure. Trace to mild mitral regurgitation. There is no pericardial effusion. <ELECTRONICALLY SIGNED> By: Gabe Kim MD 01/14/17 1326 1326 1326 Gabe Kim MD /INF
== END ==
LOC: CV 10:46
DX: I25.10 Atherosclerotic heart disease of native coronary artery without angina pectoris (principal)

== ENCOUNTER → 2017-08-15 | Outpatient (CLI) | payer BC ==
[~2017-08-15] MED LIST changes: +CENTRUM SILVER1 EAC2 PO; +CREON DR 36,001 EACH PO; +JANUMET XR 1001 EACH PO; +JANUMET XR 50-1 EAC1 PO; +LIPITOR 20 MG T20 M1 PO; +METOPROLOL TART25 MG PO
== END ==
LOC: CARD 07:22 → NUC 07:22
DX: I25.10 Atherosclerotic heart disease of native coronary artery without angina pectoris (principal); I21.3 ST elevation (STEMI) myocardial infarction of unspecified site; Z95.1 Presence of aortocoronary bypass graft

== ENCOUNTER → 2017-08-19 | Outpatient (CLI) | payer BC ==
[~2017-08-19] VITALS: Ht 182.9 cm; Wt 93.0 kg
--- NOTE | ~2017-08-19 | CATHLAB ---
[facility] [address] [place] [address] INVASIVE PROCEDURE REPORT Name: PIERCE RUSSO Room #: REG Gertrudis#: [id number] Admission: 08/19/17 Attend Phys: Gabe Kim MD Discharge: Date of : 63 Date of Service: 08/19/17 1354 Report #: [id number] THIS REPORT FOR: //name// APPROVED REPORT Patient Details Patient Status: Out-Patient Room #: The patient is a 52 year-old male Event Personnel Gabe Kim [employer], Sandip Petty RN, Gopi Gill Monitor Procedures Performed Left Heart Cath Coronaries, Bypass Grafts [id number] [facility] Ind[facility] Positive stress test, Chest pain Risk Factors Hypercholesterolemia, Coronary Artery DiseaseHypertension, Diabetes Previous Procedures/Diagnoses Previous CABG Procedure Narrative The Right Groin^ was infiltrated with 1% Lidocaine subcutaneous anesthesia. A PINNACLE 4FR Sheath #[id number] sheath was inserted into the RFA^. Coronary angiography was performed using coronary diagnostic catheters. The right coronary system was accessed and visualized with a JR4 catheter. The left coronary system was accessed and visualized with a JL4 catheter. The left ventricle was accessed and visualized with a PIGTAIL catheter. Left ventricular/Aortic Valve gradient assessed via catheter pullback. Left ventriculogram was performed in 30 degree projection. Hemostasis was obtained with manual pressure following sheath removal without any complications. The patient tolerated the procedure well and there were no complications associated with the procedure. There was no hematoma. Intraoperative Conscious Sedation Sedation start time: 11.58 Case end Time: 12.32 Fentanyl 25.0 mcg Versed 1.5 mg [facility] [address] [place] [address] INVASIVE PROCEDURE REPORT Name: PIERCE RUSSO Room #: REG CL [facility]#: [id number] Admission: 08/19/17 Attend Phys: Gabe Kim MD Discharge: Date of : 63 Date of Service: 08/19/17 1354 Report #: [id number] Fluoro Time: 10.35 minutes Dose: 1396 mGy Contrast Type and Amount: Omnipaque 175 ml Coronary Angiography The patient's coronary anatomy is right dominant. [place] Artery Percent Stenosis Left Main: % Prox LAD: 90 % Mid/Distal LAD: % Circumflex: 80 % RCA: 90 % Ramus: % Diagnostic Cath LAD There is a patent SOSA graft with an end-to-side anastomosis to the mid LAD. Diagonal 1 There is a patent sequential SVG with a udkz-ch-llmo anastomosis to the first diagonal artery and an end-to-side anastomosis to the first obtuse marginal artery. There is mild disease in the proximal segment of the vein graft. Circumflex Patent left circumflex artery, supplies 3 obtuse marginal arteries. The left circumflex artery and second and third obtuse marginal arteries are patent with no flow-limiting lesions. There is a severe occlusion at the ostium of the first OM. R PDA There is a patent vein graft with an end-to-side anastomosis to the PDA. After the anastomosis, there is both retrograde and antegrade flow within the PDA and distal RCA. Left Ventriculography The left ventricle is normal in size with decreased contractility. The left ventricular ejection fraction is estimated to be 50%. There is mild hypokinesis of the anterolateral segment. Hemodynamics The aortic pressure is 143/74 mmHg with a mean of 80 mmHg. The left ventricular pressure is 128/15 mmHg with a mean of mmHg. The left ventricular end diastolic pressure is 24 mmHg. There was no gradient across the aortic valve upon pullback. Pullback from the left ventricle to the aorta revealed no gradient across the aortic valve. Conclusion 1. Patent SOSA to the LAD. 2. Patent sequential SVG to D1 and OM1. 3. Patent SVG to PDA. [facility] [address] [place] [address] INVASIVE PROCEDURE REPORT Name: PIERCE RUSSO Room #: REG CL [facility]#: [id number] Admission: 08/19/17 Attend Phys: Gabe Kim MD Discharge: Date of : 63 Date of Service: 08/19/17 1354 Report #: [id number] 4. Mild segmental LV dysfunction. 5. Recommend medical therapy. <ELECTRONICALLY SIGNED> By: Gabe Kim MD 08/19/17 1354 1354 1354 Gabe Kim MD /INF
--- NOTE | ~2017-08-19 | EKG ---
[place] [address] [facility] [employer] [place] [address] ELECTROCARDIOGRAM REPORT Name: PIERCE RUSSO [id number] Admission: 08/19/17 Attend Phys: Gabe Kim MD Discharge: Date of : 63 Report #: [id number] THIS REPORT FOR: //name// [facility] Test Date: 2017-08-19 Test Time: 11:04:25 Pat Name: PIERCE RUSSO Department: Room: Gender: [place] Bottom Maker: Wilfredo CARABALLO : 1965 Requested By: Gabe Kim Order Number: [id number] MD: Raymond Wheeler Measurements Intervals [place] Rate: 62 P: 27 CA: 244 QRS: 41 QRSD: 132 T: 41 QT: 392 QTc: 398 Interpretive Statements Sinus rhythm Prolonged CA interval Right bundle branch block Anteroseptal infarct, age indeterminate Electronically Signed On 08-19-2017 12:02:30 [employer] FLOORMAN by Raymond Wheeler [email or web address] <ELECTRONICALLY SIGNED> By: Rayomnd Wheeler MD 08/19/17 1202 1104 1104 MD TAYLOR Drew
[2017-08-19 10:39] VITALS: BP 113/69
[2017-08-19 11:19] LABS: HEMATOCRIT 44.3 % (42.0-52.0); HEMOGLOBIN 15.1 gm/dL (14.0-18.0); MCH 29.7 pg (26.0-34.0); MCV 87.3 fL (80.0-100.0); RBC 5.08 mil/uL (4.50-6.00); RDW 13.7 % (10.5-14.5); WBC 9.7 thou/uL (4.0-11.0)
[2017-08-19 11:33] LABS: CREATININE 1.1 mg/dL (0.7-1.3); POTASSIUM 4.6 mmol/L (3.5-5.1)
== END ==
LOC: CATH 06:24
PROVIDERS: Internal Medicine Cardiovascular Disease
DX: I50.1 Left ventricular failure, unspecified (principal); I11.0 Hypertensive heart disease with heart failure; I25.2 Old myocardial infarction; E11.9 Type 2 diabetes mellitus without complications; E78.00 Pure hypercholesterolemia, unspecified; Z88.8 Allergy status to other drugs, medicaments and biological substances; Z79.82 Long term (current) use of aspirin; Z79.899 Other long term (current) drug therapy

== ENCOUNTER → 2019-09-15 | Outpatient (CLI) | payer OTHER | LOC: SJCVCIMAG 08:56 | DX: I25.10 Atherosclerotic heart disease of native coronary artery without angina pectoris (principal); I42.9 Cardiomyopathy, unspecified; I10 Essential (primary) hypertension; I25.2 Old myocardial infarction; K21.9 Gastro-esophageal reflux disease without esophagitis; E78.00 Pure hypercholesterolemia, unspecified; E11.9 Type 2 diabetes mellitus without complications; Z79.4 Long term (current) use of insulin; Z88.8 Allergy status to other drugs, medicaments and biological substances; Z79.82 Long term (current) use of aspirin; Z79.84 Long term (current) use of oral hypoglycemic drugs; Z79.899 Other long term (current) drug therapy; Z95.1 Presence of aortocoronary bypass graft ==